=== PATIENT | female | born 1985 | race Caucasian/White ===

== ENCOUNTER → 2017-11-19 | Outpatient (CLI) | payer OTHER | END | disposition home or self-care (01) | LOC: CARD 08:49 | PROVIDERS: ATTEND Internal Medicine Cardiovascular Disease | DX: R07.89 Other chest pain (principal) | CPT/HCPCS: 93017; 93350 ==

== ENCOUNTER → 2018-02-18 | Outpatient (CLI) | payer OTHER ==
[~2018-02-18] MED LIST: ASPI-496 PO; ATOR20TA9 PO; B CO1TAB14 PO; BIOT5TAB PO; CETI10TA24 PO; CHOL200024 PO; LISI5TAB7 PO; METF500T5 PO; OMEG1CAP6 PO; SPIR100T2 PO; TRAZ50TA18 PO
[2018-02-18 14:51] LABS: ALBUMIN 4.1 g/dL (3.4-5.0); ANION GAP 6 mmol/L (5-15); CALCIUM 9.3 mg/dL (8.5-10.1); CHLORIDE 106 mmol/L (98-107)
[2018-02-18 14:54] LABS: ALANINE AMINOTRANSFERASE 26 U/L (12-78); ALKALINE PHOSPHATASE 81 U/L (45-117); BILIRUBIN,TOTAL 0.7 mg/dL (0.2-1.0); CREATININE 1.05 mg/dL (0.55-1.02); TOTAL PROTEIN 7.2 g/dL (6.4-8.2)
== END | disposition home or self-care (01) ==
LOC: STAR 13:23
PROVIDERS: ATTEND Obstetrics & Gynecology Female Pelvic Medicine and Reconstructive Surgery
DX: Z01.818 Encounter for other preprocedural examination (principal); D25.0 Submucous leiomyoma of uterus; N39.3 Stress incontinence (female) (male); N92.6 Irregular menstruation, unspecified; R10.2 Pelvic and perineal pain
CPT/HCPCS: 36415; 80053